=== PATIENT | male | born 1970 | race Caucasian/White ===

== ENCOUNTER 2019-02-09 05:01 | Inpatient (IN) | payer BC ==
[~2019-02-09] VITALS: Ht 175.2 cm; Wt 66.0 kg
--- NOTE | ~2019-02-09 | EKG ---
[place], [place] ELECTROCARDIOGRAM REPORT NAME: RADHA PETERSON UNIT #: [id number] ROOM: 408 DOCTOR: HAM DRAFT REPORT BIRTHDATE: [birth year] [facility] Test Date: 2019-02-09 Test Time: 05:19:04 Pat Name: RADHA PETERSON Department: Room: 408 Gender: M Billposter: : 1970 Requested By: GEORGE DORADO Order Number: [id number] Reading MD: Cassie Buchanan Measurements Intervals [place] Rate: 96 P: 59 GA: 132 QRS: 64 QRSD: 94 T: 61 QT: 335 QTc: 424 Interpretive Statements Sinus rhythm Probable left atrial enlargement RSR' in V1 or V2, right VCD or RVH No previous ECG available for comparison Electronically Signed On 02-10-2019 4:16:55 PDT by Cassie Buchanan CM:EKGRPT:ELECTROCARDIOGRAM REPORT [id number] GEORGE CHEEK DRAFT REPORT GEORGE DORADO MD
--- NOTE | ~2019-02-09 | EKG ---
[place], [place] ELECTROCARDIOGRAM REPORT NAME: RADHA PETERSON UNIT #: [id number] ROOM: 408 DOCTOR: HAM DRAFT REPORT BIRTHDATE: [birth year] [facility] Test Date: 2019-02-09 Test Time: 11:22:58 Pat Name: RADHA PETERSON Department: Room: 408 2 Gender: M Hide Tanner: Chichi Salter : 1970 Requested By: ISABELLA BRADFORD Order Number: [id number] Reading MD: Cassie Buchanan Measurements Intervals [place] Rate: 63 P: 46 VT: 129 QRS: 22 QRSD: 102 T: 39 QT: 394 QTc: 404 Interpretive Statements Sinus rhythm Minimal ST depression, inferior leads Baseline wander in lead(s) II,III,aVF No previous ECG available for comparison Electronically Signed On 02-10-2019 4:18:52 PDT by Cassie Buchanan CM:EKGRPT:ELECTROCARDIOGRAM REPORT [id number] ISABELLA CHEEK DRAFT REPORT ISABELLA BRADFORD
--- NOTE | ~2019-02-09 | EKG ---
[place], [place] ELECTROCARDIOGRAM REPORT NAME: RADHA PETERSON UNIT #: [id number] ROOM: 408 DOCTOR: HAM DRAFT REPORT BIRTHDATE: [birth year] [facility] Test Date: 2019-02-09 Test Time: 08:44:50 Pat Name: RADHA PETERSON Department: Room: 408 2 Gender: M Knot Saw Operator: Chichi Salter : 1970 Requested By: ISABELLA BRADFORD Order Number: [id number] Reading MD: Cassie Buchanan Measurements Intervals [place] Rate: 63 P: 53 OR: 124 QRS: 52 QRSD: 99 T: 59 QT: 395 QTc: 405 Interpretive Statements Sinus rhythm No previous ECG available for comparison Electronically Signed On 02-10-2019 4:17:29 PDT by Cassie Buchanan CM:EKGRPT:ELECTROCARDIOGRAM REPORT [id number] ISABELLA CHEEK DRAFT REPORT ISABELLA BRADFORD
[~2019-02-09 05:01] MED LIST: ASCRIPTIN325 MG PO; CEFUROXIME500 MG PO; CLARINEX-D 24 H1 T24 PO; LANTUS100 U/ML SC; MEDROL DOSEPAK4 MG PO; MOTRIN800 MG PO; MYCOSTATIN100000 U/M PO; NOVOLOG100 U/ML SC; PRINIVIL10 MG PO; TRICOR145 MG PO
[2019-02-09 05:03] VITALS: BP 166/93
[2019-02-09 05:58] LABS: ALBUMIN 3.9 gm/dl (3.1-4.5); ALKALINE PHOSPHATASE 78 U/L (45-117); BUN 8 mg/dl (7-24); CHLORIDE 111 mmol/L (98-107); CREATININE 0.93 mg/dL (0.70-1.30); LIPASE 98 U/L (73-393); POTASSIUM 3.8 mmol/L (3.5-5.1); SGOT/AST 12 IU/L (3-35); SGPT/ALT 24 U/L (12-78); SODIUM 142 mmol/L (136-145)
[2019-02-09 06:01] LABS: TROPONIN I < 0.015 ng/ml (<0.045)
[2019-02-09 06:11] LABS: BASO % 0.4 % (0.0-1.0); EOS # 0.3 10*3/uL (0.0-0.4); EOS % 4.7 % (1.0-4.0); HEMOGLOBIN 15.7 g/dl (14.0-18.0); LYMPH # 1.9 10*3/uL (1.3-4.4); LYMPH % 26.5 % (27.0-41.0); MEAN CORPUSCULAR HGB 30.1 pg (27.0-31.0); MEAN CORPUSCULAR HGB CONC 33.4 g/dl (33.0-37.0); MEAN PLATELET VOLUME 10.6 fl (9.6-12.3); MONO # 0.4 10*3/uL (0.1-1.0); MONO % 6.1 % (3.0-9.0); NEUT # 4.4 10*3/uL (2.3-7.9); PLATELET COUNT AUTOMATED 146 10*3/uL (130-400); RED BLOOD COUNT 5.22 10*6/uL (4.50-5.90); RED CELL DISTRI WIDTH 13.9 % (0-14.5); WHITE BLOOD COUNT 7.2 10*3/uL (4.8-10.8)
[2019-02-09 07:33] VITALS: BP 118/82
--- NOTE | 2019-02-09 07:34 | NUR ---
REPORT RECEIVED AT 0705 FROM ROSALIE KENT. THIS PT IS AWAKE AND ALERT. VS ARE STABLE. RESPIRATIONS ARE NON-LABORED. PT STATES LITTLE RELIEF IN LEFT SHOULDER/SCAPULAR PAIN AFTER MORPHINE X2 DOSES. WAITING FOR XRAY REPORT. JENNIFER RN
[2019-02-09 09:00] VITALS: BP 148/78
--- NOTE | 2019-02-09 09:00 | NUR ---
A 48, admitted to , under the services of DELMIS Shepherd DO with a diagnosis of CHEST PAIN TO RULE OUT TX. Chief complaint is PAIN, ACUTE. Patient arrived via bed from ER. Monitor applied. Initial assessment completed. Vital signs taken and recorded. DELMIS SHEPHERD DO notified of admission to the unit. Orders received. See assessment for past medical history, medications and allergies. Patient and/or family oriented to unit. [facility] visitation policy reviewed. Clothing/patient valuable form completed. KRISTIE SIMENTAL
--- NOTE | 2019-02-09 09:30 | NUR ---
PT DENIES TAKING ANY HOME MEDICATIONS AT THIS TIME.
--- NOTE | 2019-02-09 11:04 | NUR ---
PT GIVEN 2 MG IV MORPHINE AT THIS TIME FOR C/O PAIN TO LEFT ARM/SHOULDER. RATES PAIN AN 01/29. WILL MONITOR FOR EFFECTIVENESS. CALL LIGHT IN REACH. PHYSICIAN IN TALKING WITH PT AT THIS TIME.
[2019-02-09 12:00] VITALS: BP 140/72
--- NOTE | 2019-02-09 12:04 | NUR ---
MORPHINE EFFECTIVE PER PT
[2019-02-09] MEDS ORDERED: BACLOFEN5 MG PO (13:54)
[2019-02-09] MEDS ORDERED: IBU600 M1 PO (13:54)
--- NOTE | 2019-02-09 14:22 | NUR ---
Discharge instructions reviewed with patient/family. Patient receptive and verbalizes understanding. Follow-up care arranged. Written instructions given to patient/family. KRISTIE SIMENTAL
== END 2019-02-09 14:29 | disposition home or self-care (01) | DRG 554 ==
LOC: ED 05:01 → EDHOLD 08:13 → 4E 08:30
PROVIDERS: Emergency Medicine Emergency Medical Services; ADMIT Internal Medicine
DX: M19.012 Primary osteoarthritis, left shoulder (principal); R07.89 Other chest pain; T14.8XXA Other injury of unspecified body region, initial encounter; X58.XXXA Exposure to other specified factors, initial encounter; E11.65 Type 2 diabetes mellitus with hyperglycemia; E83.41 Hypermagnesemia; Z90.89 Acquired absence of other organs; Z80.0 Family history of malignant neoplasm of digestive organs; Z79.899 Other long term (current) drug therapy; Y93.89 Activity, other specified; Y92.89 Other specified places as the place of occurrence of the external cause; Y99.8 Other external cause status

== ENCOUNTER → 2019-03-17 | Outpatient (CLI) | payer BC ==
[~2019-03-17] MED LIST changes: +BACLOFEN5 MG PO; +IBU600 M1 PO
== END | disposition home or self-care (01) ==
LOC: RAD 15:35
DX: M54.2 Cervicalgia (principal)

== ENCOUNTER 2022-05-02 11:01 | Emergency (ER) | payer BC ==
[~2022-05-02] VITALS: Ht 172.7 cm; Wt 67.6 kg
[2022-05-02 12:17] LABS: BASO % 0.5 % (0.0-1.0); EOS % 0.3 % (1.0-4.0); HEMATOCRIT 49.5 % (42.0-52.0); LYMPH # 0.4 10*3/uL (1.3-4.4); LYMPH % 6.3 % (27.0-41.0); MEAN CELL VOLUME 89.2 fl (80.0-94.0); MEAN CORPUSCULAR HGB 30.3 pg (27.0-31.0); MEAN CORPUSCULAR HGB CONC 33.9 g/dl (33.0-37.0); MEAN PLATELET VOLUME 10.2 fl (9.6-12.3); MONO # 0.5 10*3/uL (0.1-1.0); MONO % 8.3 % (3.0-9.0); NEUT % 84.1 % (47.0-73.0); PLATELET COUNT AUTOMATED 150 10*3/uL (130-400); RED BLOOD COUNT 5.55 10*6/uL (4.50-5.90); RED CELL DISTRI WIDTH 13.8 % (0-14.5)
[2022-05-02 12:32] LABS: ALKALINE PHOSPHATASE 93 U/L (45-117); BUN 12 mg/dl (7-24); CHLORIDE 106 mmol/L (98-107); CREATININE 0.85 mg/dL (0.70-1.30); POTASSIUM 4.2 mmol/L (3.5-5.1); SGOT/AST 14 IU/L (3-35); SGPT/ALT 31 U/L (12-78); SODIUM 140 mmol/L (136-145); TOTAL PROTEIN 7.8 gm/dL (6.4-8.2)
[2022-05-02] MEDS ORDERED: ZITHROMAX250 MG PO (13:34)
== END 2022-05-02 13:40 | disposition home or self-care (01) ==
LOC: ED 11:01
PROVIDERS: Nurse Practitioner Family
DX: U07.1 COVID-19 (principal); F17.200 Nicotine dependence, unspecified, uncomplicated; Z90.49 Acquired absence of other specified parts of digestive tract

== ENCOUNTER 2022-11-02 13:02 | Emergency (ER) | payer BC ==
[~2022-11-02 13:02] MED LIST changes: +ZITHROMAX250 MG PO
[2022-11-02] MEDS ORDERED: AMOX-CLAV 875-1 EACH PO (15:11)
[2022-11-02] MEDS ORDERED: HYDROCODONE-AC1 EAC1 PO (15:11)
== END 2022-11-02 15:35 | disposition home or self-care (01) ==
LOC: ED 13:02
DX: S61.211A Laceration without foreign body of left index finger without damage to nail, initial encounter (principal); Z90.49 Acquired absence of other specified parts of digestive tract; Z87.891 Personal history of nicotine dependence; W25.XXXA Contact with sharp glass, initial encounter; Y93.89 Activity, other specified; Y92.89 Other specified places as the place of occurrence of the external cause; Y99.0 Civilian activity done for income or pay

== ENCOUNTER → 2022-11-12 | Outpatient (CLI) | payer BC ==
[~2022-11-12] MED LIST changes: +AMOX-CLAV 875-1 EACH PO; +HYDROCODONE-AC1 EAC1 PO
== END | disposition home or self-care (01) ==
LOC: WOUNDCARE 01:39
PROVIDERS: ATTEND Nurse Practitioner Family
DX: S61.219A Laceration without foreign body of unspecified finger without damage to nail, initial encounter (principal); F17.200 Nicotine dependence, unspecified, uncomplicated; Z48.02 Encounter for removal of sutures; Z90.49 Acquired absence of other specified parts of digestive tract; X58.XXXD Exposure to other specified factors, subsequent encounter

== ENCOUNTER 2023-09-23 12:19 | Emergency (ER) | payer BC ==
[~2023-09-23] VITALS: Ht 175.2 cm; Wt 65.8 kg
[2023-09-23 12:55] LABS: BASO # 0.1 10*3/uL (0.0-0.1); BASO % 0.6 % (0.0-1.0); EOS # 0.3 10*3/uL (0.0-0.4); HEMATOCRIT 49.6 % (42.0-52.0); LYMPH # 2.2 10*3/uL (1.3-4.4); LYMPH % 27.9 % (27.0-41.0); MEAN CELL VOLUME 89.4 fl (80.0-94.0); MEAN CORPUSCULAR HGB 29.2 pg (27.0-31.0); MEAN CORPUSCULAR HGB CONC 32.7 g/dl (33.0-37.0); MEAN PLATELET VOLUME 9.7 fl (9.6-12.3); MONO # 0.5 10*3/uL (0.1-1.0); MONO % 6.7 % (3.0-9.0); NEUT # 4.9 10*3/uL (2.3-7.9); NEUT % 60.4 % (47.0-73.0); PLATELET COUNT AUTOMATED 181 10*3/uL (130-400); RED BLOOD COUNT 5.55 10*6/uL (4.50-5.90); RED CELL DISTRI WIDTH 13.8 % (0-14.5)
[2023-09-23 13:05] LABS: ACT PARTIAL THROMBO TIME 33.3 SECONDS (20.0-32.1)
[2023-09-23 13:16] LABS: ALKALINE PHOSPHATASE 94 U/L (46-116); BUN 5 mg/dl (9-23); CHLORIDE 109 mmol/L (98-107); POTASSIUM 3.9 mmol/L (3.4-5.1); SGPT/ALT 25 U/L (5-49); TOTAL PROTEIN 7.4 gm/dL (6.0-8.0)
[2023-09-23] MEDS ORDERED: methylPREDNISolone sod succ 125 MG VIAL IM ONE (15:25)
== END 2023-09-23 15:38 | disposition home or self-care (01) ==
LOC: ED 12:19
PROVIDERS: Emergency Medicine
DX: R07.1 Chest pain on breathing (principal); E11.9 Type 2 diabetes mellitus without complications; E78.5 Hyperlipidemia, unspecified; F17.210 Nicotine dependence, cigarettes, uncomplicated; Z79.2 Long term (current) use of antibiotics; Z79.899 Other long term (current) drug therapy; Z90.49 Acquired absence of other specified parts of digestive tract